=== PATIENT | female | born 1970 ===

== ENCOUNTER → 2018-10-28 | Outpatient (REF) ==
--- NOTE | 2018-10-29 07:47 | REP ---
Clinical: Pain and disability. Technique: AP, lateral, open mouth views of the cervical spine. Findings: Mild straightening of normal lordosis appreciated along with focal moderate/early advanced degenerative disc osteophyte complex at C5-6 and C6-7. Findings include endplate sclerosis, marginal spurring, disc space narrowing. 2 mm anterolisthesis at the C4-5 level appears chronic. No acute fracture / compression injury. Prevertebral soft tissues normal. Spinous processes are intact. Impression: Moderate/early advanced degenerative changes at C5-6 and C6-7. Electronically Signed by Garcia Felder MD 10/28/2018 02:16 P
== END ==
LOC: M SMT 13:36
PROVIDERS: ATTEND Internal Medicine
DX: M51.36 Other intervertebral disc degeneration, lumbar region (principal)